=== PATIENT | female | born 1960 | race Hispanic/Latino ===

== ENCOUNTER 2016-09-23 08:43 | Outpatient (CLI) | payer BC ==
[2016-09-23 13:03] LABS: Hemoglobin A1c 6.3 % (4.0-6.0)
== END 2016-09-23 08:44 ==
LOC: NAVSJIPCSP 08:43
PROVIDERS: ATTEND Internal Medicine
DX: E78.5 Hyperlipidemia, unspecified (principal); E11.9 Type 2 diabetes mellitus without complications; I11.9 Hypertensive heart disease without heart failure
CPT/HCPCS: 36415; 80061; 83036